=== PATIENT | male | born 1945 | race African-American/Black ===

== ENCOUNTER 2020-03-02 00:43 | Inpatient (IN) | payer MEDICAID, OTHER ==
[~2020-03-02] VITALS: Ht 182.9 cm; Wt 90.7 kg
[2020-03-02 02:08] LABS: CHLORIDE 112 mEq/L (98-107)
[2020-03-02 02:09] LABS: BASOPHILS % 0.5 % (0.0-2.0); EOSINOPHILS % 2.2 % (0.0-5.0); HEMATOCRIT. 36.8 % (42.0-52.0); HEMOGLOBIN. 12.2 g/dL (14.0-18.0); MEAN CORPUSCULAR HEMOGLOBIN 29.9 pg (28.0-32.0); MEAN PLATELET VOLUME 9.6 fl (7.4-10.4); MONOCYTES % 5.8 % (2.0-8.0); NEUTROPHILS % 70.5 % (40.0-76.0); PLATELET 161 x1000/uL (130-400); RED BLOOD CELL COUNT 4.09 mill/uL (4.7-6.1); RED CELL DISTRIBUTION WIDTH 13.2 % (11.6-14.6)
[2020-03-02 09:00] VITALS: BP_SYST 153; BP_SYST 159; BP_SYST 175; BP_DIAS 73; BP_DIAS 83; BP_DIAS 85
[2020-03-02] MEDS ORDERED: ACETAMINOPHEN 325MG TABLET PO PRN (09:00)
[2020-03-02] MEDS ORDERED: DOCUSATE SODIUM 100MG CAPSULE PO PRN (10:00)
[2020-03-02] MEDS ORDERED: TADA5TAB PO (10:55)
[2020-03-02] MEDS ORDERED: CARV6.2548 PO (10:55)
[2020-03-02] MEDS ORDERED: AMLO10TA80 MT (10:55)
[2020-03-02] MEDS ORDERED: AMLO10TA80 PO (10:55)
[2020-03-02 12:00] VITALS: BP 154/80
[2020-03-02] MEDS ORDERED: ENOXAPARIN 40MG/0.4ML SYR SUBCUT SCH (13:00)
[2020-03-02] MEDS: SODIUM CHLORIDE 0.9% INJ 3ML FLUSH IVF SCH ×2 (13:53→21:17)
[2020-03-02 16:00] VITALS: BP_SYST 108; BP_SYST 121; BP_SYST 155; BP_DIAS 61; BP_DIAS 64; BP_DIAS 89
[2020-03-02] MEDS ORDERED: ASPIRIN 81MG EC TABLET PO SCH (17:30)
[2020-03-02 18:00] VITALS: BP 139/71
[2020-03-02 20:00] VITALS: BP 144/78
[2020-03-02] MEDS ORDERED: ATORVASTATIN CALCIUM 20MG TABLET PO SCH (21:00)
[2020-03-02] MEDS ORDERED: ATORVASTATIN CALCIUM 40MG TABLET PO SCH (21:00)
[2020-03-02] MEDS ORDERED: AMLODIPINE 5MG TABLET PO SCH (21:00)
[2020-03-02] MEDS ORDERED: CARVEDILOL 6.25 MG TABLET PO SCH (21:00)
[2020-03-02 22:00] VITALS: BP 141/84
[2020-03-03 00:01] VITALS: BP 123/86
[2020-03-03 01:17] VITALS: BP 123/56
[2020-03-03] MEDS ORDERED: SODIUM CHLORIDE 0.45% 1,000 ML IV SCH (06:00)
[2020-03-03] MEDS ORDERED: PNEUMOCOCCAL 23-VAL P-SAC VAC 0.5 ML IM ONE (09:00)
== END 2020-03-03 01:21 | disposition short-term general hospital (02) | DRG 204 ==
LOC: ER 00:43 → 5EST 05:42 → ENRESERV 07:29 → ER 08:57
PROVIDERS: ADMIT Ophthalmology; ATTEND Ophthalmology
DX: R55 Syncope and collapse (principal); E78.5 Hyperlipidemia, unspecified; I11.9 Hypertensive heart disease without heart failure; I25.10 Atherosclerotic heart disease of native coronary artery without angina pectoris; I49.3 Ventricular premature depolarization; Z79.82 Long term (current) use of aspirin; Z87.891 Personal history of nicotine dependence; Z95.1 Presence of aortocoronary bypass graft; Z79.899 Other long term (current) drug therapy
CPT/HCPCS: 36415; 71045; 80053; 80061; 83880; 84443; 84484; 85025; 85379; 90732; 93005; 97162; 99285; J1650